=== PATIENT | male | born 1960 | race African-American/Black ===

== ENCOUNTER 2017-04-12 10:56 | Inpatient (IN) | payer MEDICAID ==
[~2017-04-12] VITALS: Ht 170.2 cm; Wt 72.6 kg
[2017-04-12] MEDS ORDERED: TRAM50TA3 PO (11:38)
[2017-04-12] MEDS ORDERED: METF10002 PO (11:38)
[2017-04-12 15:32] LABS: CLARITY URINE CLEAR (CLEAR); COLOR URINE DARK YELLOW (YELLOW); GLUCOSE URINE NEGATIVE (NEGATIVE); KETONES URINE TRACE (NEGATIVE); LEUKOCYTE ESTERASE URINE NEGATIVE (NEGATIVE); NITRITE URINE NEGATIVE (NEGATIVE); OCCULT BLOOD URINE NEGATIVE (NEGATIVE); PH URINE 5.5 (4.5-8.0); PROTEIN URINE 1+ (NEGATIVE)
[2017-04-12] MEDS ORDERED: SODIUM CHLORIDE 0.9% 1,000 ML IV ONE (16:00)
[2017-04-12] MEDS ORDERED: CLINDAMYCIN 600 MG in DEXTROSE 5% WATER 50 ML IV ONE (16:00)
[2017-04-12 16:28] LABS: HEMATOCRIT. 38.4 % (42.0-52.0); HEMOGLOBIN. 12.7 g/dL (14.0-18.0); MEAN CORPUSCULAR HEMOGLOBIN 28.6 pg (28.0-32.0); MEAN CORPUSCULAR VOLUME 86.3 fL (80.0-94.0); PLATELET 207 x1000/uL (130-400); RED BLOOD CELL COUNT 4.45 mill/uL (4.7-6.1)
[2017-04-12 16:29] LABS: CHLORIDE 103 mEq/L (98-107)
[2017-04-12 16:36] LABS: CARBON DIOXIDE 26 mEq/L (21-32)
[2017-04-12 17:00] LABS: PLATELET ESTIMATE NORMAL
[2017-04-12] MEDS ORDERED: ONDANSETRON HCL 4MG/2ML VIAL IV PRN (17:45)
[2017-04-12] MEDS ORDERED: CLONIDINE 0.1MG TABLET PO PRN (17:45)
[2017-04-12] MEDS ORDERED: ACETAMINOPHEN 325MG TABLET PO PRN (17:45)
[2017-04-12 20:00] VITALS: BP 127/97
[2017-04-12] MEDS ORDERED: POTASSIUM CHLORIDE 20MEQ TABLET SR PO NR (21:30)
[2017-04-12] MEDS ORDERED: DEXTROSE 50% WATER 50ML SYRINGE IV PRN ×2 (21:30)
[2017-04-12 22:00] VITALS: BP 127/69
[2017-04-12] MEDS: PIPERACILLIN/TAZ 3.375G PREMIX 50 ML IV SCH (22:32)
[2017-04-13] VITALS: BP 132/61
[2017-04-13] MEDS: SODIUM CHLORIDE 0.9% 1,000 ML IV SCH ×4 (00:05→20:07)
[2017-04-13] MEDS: ENOXAPARIN 40MG/0.4ML SYR SUBCUT SCH ×2 (00:07→20:08)
[2017-04-13] MEDS: PIPERACILLIN/TAZ 3.375G PREMIX 50 ML IV SCH ×3 (03:14→20:07)
[2017-04-13 04:00] VITALS: BP 126/59
[2017-04-13] MEDS: POTASSIUM CHLORIDE 20MEQ TABLET SR PO SCH ×2 (06:01→18:04)
[2017-04-13] MEDS: BLOOD SUGAR DIAGNOSTIC STRIP TEST SCH ×4 (07:20→21:08)
[2017-04-13 08:00] VITALS: BP 128/62
[2017-04-13] MEDS: INSULIN LISPRO 100 UNITS/ML SUBCUT SCH ×4 (09:21→21:20)
[2017-04-13] MEDS: HYDROCODONE/ACETAMINOPHEN 5/325MG TABLET PO PRN ×2 (09:34→18:06)
[2017-04-13 12:00] VITALS: BP 115/55
[2017-04-13 13:51] LABS: BASOPHILS % 0.6 % (0.0-2.0); EOSINOPHILS % 0.5 % (0.0-5.0); HEMOGLOBIN. 12.3 g/dL (14.0-18.0); LYMPHOCYTES % 16.7 % (20.0-50.0); MEAN CORPUSCULAR HEMOGLOBIN 28.4 pg (28.0-32.0); MEAN CORPUSCULAR VOLUME 85.2 fL (80.0-94.0); MEAN PLATELET VOLUME 9.5 fl (7.4-10.4); MONOCYTES % 11.1 % (2.0-8.0); NEUTROPHILS % 71.1 % (40.0-76.0); PLATELET 188 x1000/uL (130-400); RED BLOOD CELL COUNT 4.34 mill/uL (4.7-6.1); RED CELL DISTRIBUTION WIDTH 13.4 % (11.6-14.6)
[2017-04-13 14:23] LABS: CARBON DIOXIDE 26 mEq/L (21-32); CHLORIDE 103 mEq/L (98-107)
[2017-04-13 16:00] VITALS: BP 130/60
[2017-04-13 20:00] VITALS: BP 132/65
[2017-04-14] VITALS: BP 125/70
[2017-04-14] MEDS: PIPERACILLIN/TAZ 3.375G PREMIX 50 ML IV SCH ×4 (03:27→20:31)
[2017-04-14 04:00] VITALS: BP 139/67
[2017-04-14] MEDS: POTASSIUM CHLORIDE 20MEQ TABLET SR PO SCH ×2 (05:51→18:39)
[2017-04-14] MEDS: BLOOD SUGAR DIAGNOSTIC STRIP TEST SCH ×4 (06:39→21:00)
[2017-04-14] MEDS: INSULIN LISPRO 100 UNITS/ML SUBCUT SCH ×4 (07:50→22:57)
[2017-04-14 07:58] LABS: HEMATOCRIT. 34.9 % (42.0-52.0); HEMOGLOBIN. 11.9 g/dL (14.0-18.0); MEAN CORPUSCULAR HEMOGLOBIN 28.6 pg (28.0-32.0); MEAN CORPUSCULAR VOLUME 84.2 fL (80.0-94.0); MEAN PLATELET VOLUME 9.5 fl (7.4-10.4); PLATELET 201 x1000/uL (130-400); RED BLOOD CELL COUNT 4.15 mill/uL (4.7-6.1); RED CELL DISTRIBUTION WIDTH 13.3 % (11.6-14.6)
[2017-04-14 08:00] VITALS: BP 124/66
[2017-04-14 08:53] LABS: CARBON DIOXIDE 24 mEq/L (21-32); CHLORIDE 104 mEq/L (98-107)
[2017-04-14] MEDS ORDERED: METFORMIN HCL 500MG TABLET PO SCH (09:30)
[2017-04-14] MEDS ORDERED: GLIPIZIDE XL 2.5MG TABLET PO SCH (09:30)
[2017-04-14 10:45] LABS: PLATELET ESTIMATE NORMAL
[2017-04-14 12:00] VITALS: BP 123/63
[2017-04-14] MEDS: SODIUM CHLORIDE 0.9% 1,000 ML IV SCH (13:12)
[2017-04-14] MEDS: METFORMIN HCL 500MG TABLET PO SCH (18:39)
[2017-04-14 20:00] VITALS: BP 159/74
[2017-04-14] MEDS: ENOXAPARIN 40MG/0.4ML SYR SUBCUT SCH (20:32)
[2017-04-15] VITALS: BP 128/70
[2017-04-15] MEDS: PIPERACILLIN/TAZ 3.375G PREMIX 50 ML IV SCH ×4 (03:24→21:02)
[2017-04-15 04:00] VITALS: BP 131/61
[2017-04-15] MEDS: POTASSIUM CHLORIDE 20MEQ TABLET SR PO SCH ×2 (05:30→17:52)
[2017-04-15] MEDS: SODIUM CHLORIDE 0.9% 1,000 ML IV SCH ×4 (05:40→21:31)
[2017-04-15 06:48] LABS: BASOPHILS % 0.5 % (0.0-2.0); EOSINOPHILS % 0.8 % (0.0-5.0); HEMATOCRIT. 35.7 % (42.0-52.0); LYMPHOCYTES % 20.7 % (20.0-50.0); MEAN CORPUSCULAR HEMOGLOBIN 28.5 pg (28.0-32.0); MEAN CORPUSCULAR VOLUME 84.6 fL (80.0-94.0); MEAN PLATELET VOLUME 8.9 fl (7.4-10.4); MONOCYTES % 14.8 % (2.0-8.0); NEUTROPHILS % 63.2 % (40.0-76.0); PLATELET 235 x1000/uL (130-400); RED BLOOD CELL COUNT 4.22 mill/uL (4.7-6.1); RED CELL DISTRIBUTION WIDTH 13.5 % (11.6-14.6)
[2017-04-15 07:17] LABS: CARBON DIOXIDE 25 mEq/L (21-32); CHLORIDE 105 mEq/L (98-107)
[2017-04-15] MEDS: BLOOD SUGAR DIAGNOSTIC STRIP TEST SCH ×4 (07:20→21:08)
[2017-04-15] MEDS: INSULIN LISPRO 100 UNITS/ML SUBCUT SCH ×4 (07:50→21:00)
[2017-04-15 08:00] VITALS: BP 115/55
[2017-04-15] MEDS: GLIPIZIDE XL 2.5MG TABLET PO SCH (09:21)
[2017-04-15] MEDS: METFORMIN HCL 500MG TABLET PO SCH ×2 (09:22→17:52)
[2017-04-15 12:00] VITALS: BP 127/67
[2017-04-15 16:00] VITALS: BP 128/63
[2017-04-15 20:00] VITALS: BP 152/71
[2017-04-15] MEDS: ENOXAPARIN 40MG/0.4ML SYR SUBCUT SCH (21:02)
[2017-04-16] VITALS: BP 122/69
[2017-04-16 04:00] VITALS: BP 118/64
[2017-04-16] MEDS: PIPERACILLIN/TAZ 3.375G PREMIX 50 ML IV SCH ×2 (04:09→09:17)
[2017-04-16] MEDS: BLOOD SUGAR DIAGNOSTIC STRIP TEST SCH (06:19)
[2017-04-16] MEDS: POTASSIUM CHLORIDE 20MEQ TABLET SR PO SCH (06:20)
[2017-04-16] MEDS: INSULIN LISPRO 100 UNITS/ML SUBCUT SCH (07:50)
[2017-04-16 08:00] VITALS: BP 123/69
[2017-04-16] MEDS: GLIPIZIDE XL 2.5MG TABLET PO SCH (09:16)
[2017-04-16] MEDS: METFORMIN HCL 500MG TABLET PO SCH (09:17)
[2017-04-16 10:27] VITALS: BP 123/69
[2017-04-17 04:19] LABS: CHLAMYDIA TRACHOMATIS NAA Negative (Negative); NEISSERIA GONORRHOEAE NAA Negative (Negative)
== END 2017-04-16 11:30 | disposition home or self-care (01) | DRG 383 ==
LOC: ER 10:56 → 6EST 15:56 → ENRESERV 17:56
PROVIDERS: ADMIT Internal Medicine Geriatric Medicine; ATTEND Internal Medicine Geriatric Medicine
DX: L03.116 Cellulitis of left lower limb (principal); E11.621 Type 2 diabetes mellitus with foot ulcer; L97.409 Non-pressure chronic ulcer of unspecified heel and midfoot with unspecified severity; E11.649 Type 2 diabetes mellitus with hypoglycemia without coma; E87.6 Hypokalemia; D63.8 Anemia in other chronic diseases classified elsewhere; E66.3 Overweight; F17.210 Nicotine dependence, cigarettes, uncomplicated; L97.529 Non-pressure chronic ulcer of other part of left foot with unspecified severity; Z20.2 Contact with and (suspected) exposure to infections with a predominantly sexual mode of transmission; Z68.25 Body mass index [BMI] 25.0-25.9, adult; E44.1 Mild protein-calorie malnutrition
CPT/HCPCS: 36415; 73590; 73630; 80048; 80053; 81001; 82962; 83036; 83735; 85025; 87040; 87491; 87591; 93970; 96365; 96366; 99285; J1650; J1815; J2543; J3490; J7030; J7060

== ENCOUNTER 2022-04-16 15:39 | Emergency (ER) | payer MEDICAID ==
[~2022-04-16] VITALS: Ht 167.6 cm; Wt 79.0 kg
[~2022-04-16 15:39] MED LIST: METF-416 PO; TRAM50TA3 PO
[2022-04-16 15:43] VITALS: BP 154/79
[2022-04-16] MEDS ORDERED: CEPH500C2 MT (17:28)
== END 2022-04-16 17:59 | disposition home or self-care (01) ==
LOC: ER 15:39
DX: L98.8 Other specified disorders of the skin and subcutaneous tissue (principal)
CPT/HCPCS: 99283

== ENCOUNTER 2023-05-17 13:14 | Emergency (ER) | payer MEDICAID, OTHER ==
[~2023-05-17] VITALS: Ht 170.2 cm; Wt 79.4 kg
[~2023-05-17 13:14] MED LIST changes: +CEPH500C2 MT
[2023-05-17 13:37] VITALS: BP 141/52; PULSE 82; RESP 16; TEMP 98.2; O2SAT 100
[2023-05-17] MEDS ORDERED: EMOL454C7 TP (15:03)
[2023-05-17] MEDS ORDERED: HYDR453.3 TP (15:03)
== END 2023-05-17 15:21 | disposition home or self-care (01) ==
LOC: ER 13:14
DX: R21 Rash and other nonspecific skin eruption (principal); Z68.27 Body mass index [BMI] 27.0-27.9, adult
CPT/HCPCS: 99282

== ENCOUNTER 2025-03-25 15:47 | Emergency (ER) | payer MEDICARE, MEDICAID ==
[~2025-03-25] VITALS: Ht 170.2 cm; Wt 79.0 kg
[~2025-03-25 15:47] MED LIST changes: +EMOL454C7 TP; +HYDR453.3 TP
[2025-03-25 15:53] VITALS: O2SAT 100
[2025-03-25] MEDS: CEFTRIAXONE SODIUM 500MG VIAL IM ONE (17:00)
[2025-03-25] MEDS ORDERED: DOXY100T2 MT (17:12)
[2025-03-25 17:20] VITALS: BP 118/77; PULSE 85; RESP 16; TEMP 36.8; O2SAT 100
[2025-03-25 18:41] LABS: CLARITY URINE CLEAR (CLEAR); COLOR URINE DARK YELLOW (YELLOW); GLUCOSE URINE 3+ (NEGATIVE); KETONES URINE NEGATIVE (NEGATIVE); LEUKOCYTE ESTERASE URINE NEGATIVE (NEGATIVE); NITRITE URINE NEGATIVE (NEGATIVE); OCCULT BLOOD URINE NEGATIVE (NEGATIVE); PH URINE 6.0 (4.5-8.0); PROTEIN URINE NEGATIVE (NEGATIVE); SPECIFIC GRAVITY URINE 1.034 (1.005-1.030); UROBILINOGEN URINE 2.0 E.U./dL (0.2-1.0)
[2025-03-25 19:01] LABS: BACTERIA URINE TRACE; RBC URINE NONE SEEN /hpf (0-2); SQUAMOUS EPITHELIAL CELL URINE RARE /lpf (RARE/1+); WBC URINE 0-2 /hpf (0-2)
[2025-03-27 19:06] LABS: CHLAMYDIA TRACHOMATIS NAA Negative (Negative); NEISSERIA GONORRHOEAE NAA Negative (Negative)
== END 2025-03-25 17:23 | disposition home or self-care (01) ==
LOC: ER 15:47
DX: A64 Unspecified sexually transmitted disease (principal); Z11.3 Encounter for screening for infections with a predominantly sexual mode of transmission; E11.9 Type 2 diabetes mellitus without complications
CPT/HCPCS: 99283; 87491; 87591; 81003; 96372; J0696